=== PATIENT | female | born 1995 | race Two or more races ===

== ENCOUNTER 2024-03-02 10:26 | Emergency (ER) | payer MEDICAID ==
[~2024-03-02] VITALS: Ht 157.5 cm; Wt 86.3 kg
[~2024-03-02 10:26] MED LIST: DOCU-94 PO; FER325T PO; HYDR-4902 PO; IBUP-1456 PO
[2024-03-02 10:31] VITALS: TEMP 98
[2024-03-02 10:44] VITALS: BP 119/61; PULSE 100; RESP 17; O2SAT 100
--- NOTE | 2024-03-02 10:54 | ED.PDOC ---
History of Present Illness HPI Comments 28-year-old female presents with a chief complaint of cough, congestion, and sore throat x 3 days. Patient states that she has been having these cold- symptoms for the past x 3 days. Patients main concern is her throat pain which she states it is painful to swallow. Patient denies any sick contacts at home. P chano mentions that she took one tablet of Zithromax that was from a family member and not her own prescription. Chief Complaint: Sore Throat Time Seen by MD: 10:45 Reviewed Notes: Medications, Allergies Allergies: Coded Allergies: NO KNOWN ALLERGIES (Unverified , 04/06/22) Home Meds Active Scripts Ibuprofen (Ibuprofen) 800 Mg Tab, 800 MG PO TID PRN for 15 Days, #40 TAB Prov:AKIKO NORIEGA DO 04/07/22 Hydrocodone-Acetaminophen (Hydrocodone Bitartrate/AC 5-325 mg) 1 Tab Tab, 1 TAB PO Q6HPRN PRN for 5 Days, #20 TAB Prov:AKIOK NORIEGA 04/07/22 Ferrous Sulfate (FERROUS SULFATE) 325 Mg Tb, 1 TAB PO BID, #60 TAB 3 Refills Prov:AKIKO NORIEGA 04/07/22 Docusate Sodium (Colace) 100 Mg Cap, 1 CAP PO BID, #60 CAP 2 Refills Prov:AKIKO NORIEGA DO 04/07/22 Information Source: Patient Mode of Arrival: Ambulatory Severity: Moderate Timing: Days Duration: Since onset Prehospital treatment: None Past Medical History PAST MEDICAL HISTORY: Denies Surgical History: Denies all surgeries CATEGORY DEVELOPMENT ANALYST History: Denies all CATEGORY DEVELOPMENT ANALYST Hx Family History Family History: Reviewed,noncontributory to illness Social History Smoker: Non-Smoker Alcohol: Denies ETOH Use Drugs: Denies Drug Use Lives In: Home Constitutional: denies: chills, diaphoresis, fatigue, fever, malaise, sweats, weakness, others EENTM: reports: nose congestion, throat pain; denies: blurred vision, double vision, ear bleeding, ear discharge, ear drainage, ear pain, ear ringing, eye pain, eye redness, hearing loss, mouth pain, mouth swelling, nasal discharge, nose bleeding, nose pain, photophobia, tearing, throat swelling, voice changes, others Respiratory: reports: cough; denies: hemoptysis, orthopnea, SOB at rest, shortness of breath, SOB with excertion, stridor, wheezing, others Cardiovascular: denies: chest pain, dizzy spells, diaphoresis, Dyspnea on exertion, edema, irregular heart beat, left arm pain, lightheadedness, palpi tations, PND, syncope, others Gastrointestinal: denies: abdomen distended, abdominal pain, blood streaked bowels, constipated, diarrhea, dysphagia, difficulty swallowing, hematemesis, melena, nausea, poor appetite, poor fluid intake, rectal bleeding, rectal pain, vomiting, others Genitourinary: denies: abnormal vagina bleeding, burning, dyspareunia, dysuria, flank pain, frequency, hematuria, incontinence, pain, , vagina discharge, urgency, others Neurological: denies: dizziness, fainting, headache, left sided numbness, left sided weakness, numbness, paresthesia, pre-existing deficit, right sided numbness, right sided weakness, seizure, speech problems, tingling, tremors, weakness, others Musculoskeletal: denies: back pain, gout, joint pain, joint swelling, muscle pain, muscle stiffness, neck pain, others Integumetry: denies: bruises, change in color, change in hair/nails, dryness, laceration, lesions, lumps, rash, wounds, others Allergic/Immunocompromised: denies: Difficulty Healing, Frequent Infections, Hives, Itching, others Hematologic/Lymphatic: denies: anemia, blood clots, easy bleeding, easy bru ising, swollen glands, others Endocrine: denies: excessive hunger, excessive sweating, excessive thirst, e xcessive urination, flushing, intolerance to cold, intolerance to heat, unexplained weight gain, unexplained weight loss, others Psychiatric: denies: anxiety, bipolar disorder, depression, hopeless, panic disorder, schizophrenia, sleepless, suicidal, others All Other Systems: Reviewed and Negative Physical Exam General Appearance: No Apparent Distress, Normal HEENT: Sinuses (NASAL CONGESTION), Tonsillar Exudate (RIGHT SIDED WHITE TONSILAR EXUDATE) Neck: Full Range of Motion, Non-Tender, Normal, Normal Inspection Respiratory: Chest Non-Tender, Lungs Clear, No Accessory Muscle Use, No Respiratory Distress, Normal Breath Sounds Cardiovascular: No Edema, No JVD, No Murmur, No Gallop, Normal Peripheral Pulses, Regular Rate/Rhythm Breast Exam: Deferred Gastrointestinal: No Organomegaly, Non Tender, No Pulsatile Mass, Normal Bowel Sounds, Soft Genitalia: Deferred Pelvic: Deferred Rectal: Deferred Extremities: No calf tenderness, Normal capillary refill, Normal inspection, No rmal range of motion, Non-tender, No pedal edema Musculoskeletal : Apperance: Normal Neurologic: Alert, tariff inspector II-XII nml as Tested, No Motor Deficits, Normal Affect, Normal Mood, No Sensory Deficits Cerebellar Function: Normal Reflexes: Normal Skin: Dry, Normal Color, Warm Lymphatic: No Adenopathy Was a procedure done? Was a procedure done?: No Differential Dx Considerations may include: tonsillitis, viral infection. peritonsillar abscess, mononucleosis X-Ray, Labs, Meds, VS Vital Signs Date Time Temp Pulse Resp B/P (MAP) Pulse Ox O2 Delivery O2 Flow Rate FiO2 03/02/24 10:44 98.0 100 17 119/61 (80) 100 03/02/24 10:31 100 17 100 Room Air 03/02/24 10:31 98.0 100 17 119/61 (80) 100 98.0 Current Medications Medications (Trade) Dose Ordered Sig/Guy Route Start Time Stop Time Status Last Admin Penicillin G Benzathine (Bicillin L-A) 1,200,000 units ONCE ONCE IM 03/02/24 10:45 03/02/24 10:47 DC 03/02/24 10:56 Dexamethasone Sodium Phosphate (Decadron Injection) 4 mg ONCE ONCE IM 03/02/24 10:45 03/02/24 10:47 DC 03/02/24 10:56 Ketorolac Tromethamine (Toradol Injection) 15 mg ONCE ONCE IM 03/02/24 10:45 03/02/24 10:47 DC 03/02/24 10:56 Time of 1ST Reevaluation: 11:45 Reevaluation 1ST: Unchanged Patient Education/Counseling: Diagnosis, Treatment, Prognosis, Need For Follow Up Family Education/Counseling: No Family Present Departure 1 Departure Time of Disposition: 12:02 Impression: Primary Impression: Tonsillitis Disposition: 01 HOME / SELF CARE / HOMELESS Condition: Good Discharged With: Self Critical Care Note Critical Care Time?: No Stability Stability form required: No I personally scribed for MERE TRONCOSO MD ([email or web address]) on 03/02/24 at 10:54. Electronically submitted by Paulo Escobar ([email or web address]). MERE TRONCOSO MD Mar 02, 2024 10:54
[2024-03-02] MEDS: KETOROLAC TROMETH 30 MG/ML 1ML VIAL IM ONE (10:56)
[2024-03-02] MEDS: PENICILLIN G BENZ 1,200,000 UNITS/2 ML SYRG IM ONE (10:56)
[2024-03-02] MEDS: DexAMETHasone SOD PHOS 4 MG/1ML SDV INJ IM ONE (10:56)
== END 2024-03-02 12:09 | disposition home or self-care (01) ==
LOC: ER 10:26
DX: J03.90 Acute tonsillitis, unspecified (principal); Z79.899 Other long term (current) drug therapy
CPT/HCPCS: 96372; 99284; J0561; J1885; J1100